=== PATIENT | male | born 1950 | race Caucasian/White ===

== ENCOUNTER 2018-08-25 08:13 | Inpatient (IN) | payer MEDICARE, OTHER ==
[2018-08-25 09:12] LABS: Hemoglobin 13.7 g/dL (14.0-18.0); Mean Corpuscular HGB CONC 32.9 g/dL (32.0-36.0); Mean Corpuscular Hemoglobin 29.9 pg (27.0-31.0); Mean Corpuscular Volume 90.8 fL (78.0-98.0); Mean Platelet Volume 6.5 fL (7.4-10.4); Platelet Count 214 thou/uL (130-400); RBC Distribution Width 11.5 % (11.5-14.5); Red Blood Cell (RBC) Count 4.58 mill/uL (4.70-6.10)
[2018-08-25 09:16] LABS: Anion Gap 16 mmol/L (10-20); BUN (Urea Nitrogen) 29 mg/dL (8.4-25.7); Calc. Creatinine Clearance 0 mL/min (70-130); Calcium 9.9 mg/dL (7.8-10.44); Carbon Dioxide 26 mmol/L (23-31); Chloride 95 mmol/L (98-107); Estimated GFR-MDRD 42; Glucose 252 mg/dL (80-115); Potassium 4.5 mmol/L (3.5-5.1); Sodium 132 mmol/L (136-145)
[2018-08-25 09:20] LABS: Eosinophils 3 % (0-10); Large Platelets SLIGHT; Lymphocytes 11 % (21-51); MDiff Complete? YES; Monocytes 5 % (0-10); Neutrophil 19 % (42-75); Platelet Morphology Comment Appears Adequate; Reactive Lymphocytes 62 % (0-10); White Blood Cell (WBC) Count 41.9 thou/uL (4.8-10.8)
[2018-08-25] MEDS ORDERED: Clindamycin/D5W 900 mg/50 ml Premix Bag ONE (10:26)
--- NOTE | 2018-08-25 10:29 | CT ---
POSTCONTRAST SOFT TISSUE NECK CT: HISTORY: Right-sided neck pain, onset yesterday. Worsening swelling x 2-3 weeks. COMPARISON: None. TECHNIQUE: Postcontrast soft tissue neck CT is performed in the axial plane. Reformatted images are submitted f or interpretation. FINDINGS: Visualized brain parenchyma and orbits are unremarkable. Adequate aeration of the visualized sinuses and mastoid air cells. Nasopharynx is unremarkable. No masses in the oral cavity. Limited evaluation due to artifact. The re is periapical lucency involving the posterior most right mandibular teeth. Correlate for periapic al abscess. There is no destruction of the associated mandible. Midline fatty raphae of the tongue is preserved. Epiglottis has a normal caliber. Preepiglottic fat is preserved. There is mild fullness of the posterior left and right oropharyngeal mucosa, nonspecific. Direct vis ualization is recommended. The supraglottic, glottic, and subglottic larynx is unremarkable. Symmetric attenuation of the sternocleidomastoid muscles, parotid glands. Fatty infiltration of both parotid glands. Thyroid gland is unremarkable. Grossly, the great vessels of the neck are patent. Cervical spine vertebral body height is maintained. There is no cervical spine fracture. There is d egenerative change with loss of disk space height and osteophyte formation, greatest at C5-C6. In the right submandibular region, there is a peripherally enhancing slightly lobulated predominantly hypodense mass measuring 3.9 x 3.8 cm. There is induration of the adjacent subcutaneous/soft tissue neck fat. An infected fluid collection versus a cystic, necrotic enlarged lymph node are different ial considerations. There are scattered nonspecific nonenlarged soft tissue neck lymph nodes noted b ilaterally. Varying degrees of central canal stenosis and neural foraminal narrowing on the basis of degenerative change. Upper mediastinum and lung apices are unremarkable. IMPRESSION: 1. Peripherally enhancing lesion in the right submandibular region which may represent an enlarged n ecrotic lymph node versus infected fluid collection. 2. Mild mucosal fullness in the posterior left and right oropharynx. POS: [facility]
[2018-08-25 10:38] LABS: INR-International Normal Ratio 1.1; PTT 32.4 SEC (22.9-36.1); Prothrombin Time 13.9 SEC (12.0-14.7)
[2018-08-25] MEDS ORDERED: Sodium Chloride 0.9% 1,000 ML IV SCH (12:45)
[2018-08-25] MEDS ORDERED: Bisacodyl 10 MG SUPP PR PRN (12:47)
[2018-08-25] MEDS ORDERED: Insulin Regular 300 UNITS/3 ML VIAL SC PRN (12:47)
[2018-08-25] MEDS ORDERED: Acetaminophen 650 MG Suppository PR PRN (12:47)
[2018-08-25] MEDS ORDERED: Ondansetron PF 4 MG/2 ML Vial IVP PRN (12:47)
[2018-08-25] MEDS ORDERED: Dextrose 5% in Water 1,000 ML IV PRN (12:47)
[2018-08-25] MEDS ORDERED: Acetaminophen 325 MG TAB PO PRN (12:47)
[2018-08-25] MEDS ORDERED: Calcium Carbonate 500 MG ChewTAB PO PRN (12:47)
[2018-08-25] MEDS ORDERED: Dextrose 50% Abboject 50 ML SYRINGE SLOW IVP PRN (12:47)
[2018-08-25] MEDS ORDERED: traMADol HCl 50 MG TAB PO PRN (13:59)
[2018-08-25] MEDS: Sodium Chloride 0.9% 1,000 ML IV SCH ×2 (14:22→21:19)
[2018-08-25 14:23] VITALS: BMI 36.3
[2018-08-25] MEDS ORDERED: cloNIDine 0.1 MG TAB PO PRN (14:23)
--- NOTE | 2018-08-25 15:00 | HP ---
PRIMARY CARE PHYSICIAN: Dr. Cherrie Larios. CHIEF COMPLAINT: Right-sided neck swelling with pain of 2 days duration. HISTORY OF PRESENT ILLNESS: The patient is a 67-year-old male with diabetes mellitus, type 2; chronic lymphocytic leukemia, stage 0; presented to the emergency room with above symptoms. Over the last 2 to 3 weeks, the patient noticed a gradual worsening of swelling of the right anterior side of the neck. This got worse over the last 2 days along with significant pain. He felt feverish, however, did not record his temperature. The pain was 10/10, radiating to his right ear. The pain was also worse on chewing. He denies any shortness of breath or swallowing difficulty. Approximately 1 or 2 months ago, he had some dental procedures done on the right. In the emergency room, initial vital signs showed temperature of 99, pulse rate of 102, blood pressure of 146/78, respirations of 18, and O2 saturations 99% on room air. Pain level of 10. A CT scan of the neck in the emergency room was consistent with 3.9 x 3.8 cm fluid collection in the right submandibular region. He received clindamycin in the emergency room. PAST MEDICAL HISTORY: 1. Diabetes mellitus, type 2. 2. Chronic lymphocytic leukemia, followed by Dr. Chowdhury. 3. Hypertension. 4. Hyperlipidemia. 5. Chronic pain syndrome. PAST SURGICAL HISTORY: 1. Gastric sleeve in 2006. 2. Dental procedures. ALLERGIES: THE PATIENT IS ALLERGIC TO CODEINE. CURRENT HOME MEDICATIONS: Family to get the accurate list of medication. He is unable to recall all of his home medications. He also takes tramadol on a daily basis for chronic pain. SOCIAL HISTORY: The patient currently lives at home with his family. He chews tobacco. He denies any alcohol or drug use. He makes his own decision with the help of his family. He is full code. FAMILY HISTORY: Positive for diabetes. REVIEW OF SYSTEMS: The patient denies any chest pain, palpitations, lightheadedness, dizziness, or focal neurologic deficit. All other review of systems were reviewed and were found negative. PHYSICAL EXAMINATION: VITAL SIGNS: As discussed above. GENERAL: A 67-year-old male, in mild distress due to neck pain. HEENT: Head, atraumatic and normocephalic. Sclerae are anicteric. Moist mucous membrane. No oral lesion. NECK: There is significant swelling over the anterior right neck. The mass was firm, fixed, with mild erythema. LUNGS: Clear to auscultation bilaterally. No wheezing, rales, or rhonchi. HEART: S1 and S2 present. Regular rate and rhythm. No murmurs, rubs, or gallops appreciated. ABDOMEN: Soft, obese. Bowel sounds present. EXTREMITIES: No edema or calf tenderness. NEUROLOGY: Grossly nonfocal. Moves all 4 extremities. PSYCHIATRIC: Alert, awake, and oriented x3. LABORATORY FINDINGS: CBC showed WBC of 41.9, with platelet count of 214, hemoglobin 13.7, 62% lymphocytes. Chemistry showed sodium 132, potassium 4.5, chloride 95, bicarb 26, BUN 29, creatinine 1.64. PT, INR, PTT are in normal range. CT of the neck by my review as discussed above. IMPRESSION: 1. Right neck cellulitis/abscess with possible sepsis. Baseline leukocyte count unavailable at this time. 2. Chronic kidney disease, stage 3. 3. Diabetes mellitus, type 2, on oral hypoglycemics. 4. Hypertension. 5. Mild hyponatremia. 6. Chronic pain syndrome. 7. Morbid obesity, status post gastric sleeve in 2006. 8. Tobacco dependence. PLAN: The patient will be monitored on the surgical floor. He will be kept n.p.o. We will continue IV fluids. Continue IV clindamycin. We will add probiotics. Blood cultures have been done. I discussed the case with Dr. Alvarado, ENT. We will start him on insulin sliding scale. We will resume other medications once confirmed. Plan of care was discussed with the patient in detail. He stated understanding. Job ID: [id number] [facility]
[2018-08-25] MEDS ORDERED: Iopamidol 370 76% 100 ML VIAL ONE (16:48)
[2018-08-25] MEDS: Morphine 4 MG/ML VIAL SLOW IVP PRN (16:53)
[2018-08-25] MEDS: Clindamycin/D5W 900 MG in Premix Bag 1 BAG IVPB SCH (18:30)
[2018-08-25] MEDS: ALPRAZolam 0.25 MG TAB PO PRN (21:14)
[2018-08-25] MEDS: Ondansetron ODT 4 MG TAB PO PRN (21:14)
[2018-08-25] MEDS: Saccharomyces boulardii 250 MG CAP PO SCH (21:14)
[2018-08-25] MEDS: Senokot S 8.6-50 MG TAB PO SCH (21:14)
[2018-08-25] MEDS: Hydrocodone-Acetamin 15 ML UDCUP PO PRN (21:15)
--- NOTE | 2018-08-25 21:16 | CON ---
DATE OF CONSULTATION: 08/25/2018 CONSULTING PHYSICIAN: Hector Wilson M.D. REASON FOR CONSULTATION: Right neck abscess. HISTORY OF PRESENT ILLNESS: Mr. Johnson is a 67-year-old male who has a history of CLL and presented couple of weeks ago with mass in his submaxillary gland bilaterally. He had had a dental extraction about 3 months ago on both sides of his mandible. About 2 days ago, he had a sudden increase in swelling of the right submaxillary gland mass with increased pain and having chills. He did not know, if he has having any fever. He is having difficulty sleeping and difficulty eating due to the pain. He was presented to the emergency room and CT scan showed 2 enlarged lymph nodes in the right submaxillary gland, appeared to be separate from the submaxillary gland itself that were loosened on the inside and enhancing. No other significant lymphadenopathy or masses were noted. Ears and sinuses were clear. He was admitted for pain control and antibiotics and possible incision and drainage. I was consulted to evaluate for drainage of the abscess. PAST MEDICAL HISTORY: Please see his admission history and physical for further details of his past medical history. REVIEW OF SYSTEMS: Reviewed on this date. ALLERGIES: OF NOTE, HE IS ALLERGIC TO CODEINE. PHYSICAL EXAMINATION: GENERAL: Obese white male in moderate distress. HEENT: Head, atraumatic and normocephalic. Eyes, pupils equal, round and reactive to light. Extraocular movements intact. Ears, tympanic membranes intact, mobile and clear. No signs of any flu infection noted. Nose, mucosa looks pink and healthy. No signs of any purulent drainage or infection or irritation noted. Oral cavity and oropharynx showed teeth in good repair. Mucosa looks pink and healthy. No evidence of any stones or purulent drainage from the submaxillary glands or the parotids. No other lesions noted. Tonsils were 1+. NECK: Shows a very large tender mass in the right submaxillary triangle area. There is mild erythema in this area. There is no palpable fluctuance noted. The mass measures about 8 cm in size. Thyroid is palpably normal. LUNGS: Clear to auscultation. HEART: Rate and rhythm regular without murmur or gallop. NEUROLOGIC: Cranial nerves III through XII were intact. ASSESSMENT: Right submaxillary lymphadenopathy with early abscess formation. RECOMMENDATIONS: At this point time, there is no fluctuance. It appears to be more of a phlegmon than an actual liquid abscess. We talked with him about trying to aspirate it. He was adamant that he would not tolerate aspiration with a needle. At this point time, it does not appear to be liquid enough and I recommended observing on IV antibiotics and we will give him a burst of Decadron and warm compresses and see how it proceeds over the next day or 2 and consideration of an incision and drainage, if it continues to worsen or becomes more fluctuant. Job ID: [id number]
[2018-08-26] MEDS: Clindamycin/D5W 900 MG in Premix Bag 1 BAG IVPB SCH ×3 (02:53→17:40)
[2018-08-26 06:00] LABS: Hemoglobin 12.7 g/dL (14.0-18.0); Mean Corpuscular HGB CONC 31.4 g/dL (32.0-36.0); Mean Corpuscular Hemoglobin 29.5 pg (27.0-31.0); Mean Corpuscular Volume 93.9 fL (78.0-98.0); Mean Platelet Volume 6.3 fL (7.4-10.4); Platelet Count 195 thou/uL (130-400); RBC Distribution Width 11.6 % (11.5-14.5); Red Blood Cell (RBC) Count 4.29 mill/uL (4.70-6.10)
[2018-08-26] MEDS: Morphine 4 MG/ML VIAL SLOW IVP PRN (06:02)
[2018-08-26 06:19] LABS: ALT (SGPT) 13 U/L (8-55); AST (SGOT) 9 U/L (5-34); Albumin 3.8 g/dL (3.4-4.8); Alkaline Phosphatase 87 U/L (40-150); Anion Gap 13 mmol/L (10-20); BUN (Urea Nitrogen) 23 mg/dL (8.4-25.7); Bilirubin, Total 0.5 mg/dL (0.2-1.2); Calc. Creatinine Clearance 84 mL/min (70-130); Calcium 9.2 mg/dL (7.8-10.44); Carbon Dioxide 26 mmol/L (23-31); Chloride 98 mmol/L (98-107); Estimated GFR-MDRD 46; Globulin 2.9 g/dL (2.4-3.5); Glucose 216 mg/dL (80-115); Potassium 4.1 mmol/L (3.5-5.1); Protein, Total 6.7 g/dL (5.8-8.1); Sodium 133 mmol/L (136-145)
[2018-08-26 06:29] LABS: Hypochromia SLIGHT = 6-15 cells (100X) (0-5/hpf); Lymphocytes 11 % (21-51); MDiff Complete? YES; Neutrophil 46 % (42-75); Platelet Morphology Comment Appears Adequate; Reactive Lymphocytes 43 % (0-10)
[2018-08-26] MEDS: Hydrocodone-Acetamin 15 ML UDCUP PO PRN ×3 (07:59→21:55)
[2018-08-26] MEDS: Senokot S 8.6-50 MG TAB PO SCH ×2 (08:00→21:55)
[2018-08-26] MEDS: Sodium Chloride 0.9% 1,000 ML IV SCH ×4 (08:04→21:56)
[2018-08-26] MEDS: Ondansetron ODT 4 MG TAB PO PRN (16:09)
[2018-08-26] MEDS: Insulin Regular 300 UNITS/3 ML VIAL SC PRN (17:40)
[2018-08-26] MEDS ORDERED: RENALLY ADJUST ANTIBIOTICS IVPB PRN (21:34)
--- NOTE | 2018-08-26 21:37 | PDOC.PN ---
- Subjective Encounter Start Date: 08/26/18 Encounter Start Time: 14:00 Patient seen and examined for neck abscess. Increasing neck swelling. No swallowing or breathing difficulty. No new complaints. No overnight events - Objective Resuscitation Status - Order Detail: 08/25/18 12:47 Resuscitation Status Routine Resuscitation Status: FULL: Full Resuscitation MAR Reviewed: Yes Vital Signs & Weight: Vital Signs (12 hours) Temp Pulse Resp BP Pulse Ox 08/26/18 15:57 98.4 F 69 18 144/83 H 95 08/26/18 11:10 98.0 F 65 18 121/78 97 Weight Weight 275 lb I&O: 08/25/18 08/26/18 08/27/18 06:59 06:59 06:59 Intake Total 960 1500 Balance 960 1500 Result Diagrams: 08/26/18 05:34 08/26/18 05:34 Additional Labs: Accuchecks 08/26/18 08/26/18 08/26/18 15:58 11:11 06:15 POC Glucose 170 H 204 H 212 H 08/25/18 21:10 POC Glucose 205 H Phys Exam - Physical Examination Constitutional: NAD Neck: no JVD Rt sided neck swelling Respiratory: no wheezing, no rhonchi Cardiovascular: RRR, no rub Gastrointestinal: soft, non-tender, positive bowel sounds Musculoskeletal: no edema Dx/Plan - Plan DVT proph w/SCDs IMPRESSION: 1. Right neck cellulitis/abscess with possible sepsis. 2. Chronic kidney disease, stage 3. 3. Diabetes mellitus, type 2, on oral hypoglycemics. 4. Hypertension. 5. Mild hyponatremia. 6. Chronic pain syndrome. 7. Morbid obesity, status post gastric sleeve in 2006. 8. Tobacco dependence. 9. CLL PLAN: Cont IV Clindamycin ENT following NPO past MN for possible intervention Pain control Cont sliding scale Resume selected home meds Review of Systems - Review of Systems Respiratory: negative: Cough, Dry, Shortness of Breath, Hemoptysis, SOB with Excertion, Pleuritic Pain, Sputum, Wheezing Cardiovascular: negative: chest pain, palpitations, orthopnea, paroxysmal nocturnal dyspnea, edema, light headedness, other - Medications/Allergies Allergies/Adverse Reactions: Allergies Allergy/AdvReac Type Severity Reaction Status Date / Time codeine Allergy Verified 08/25/18 20:51 Medications: Current Medications Acetaminophen (Tylenol) 650 mg PO Q4H PRN PRN Reason: Headache/Fever/Mild Pain (1-3) Acetaminophen (Tylenol) 650 mg HI Q4H PRN PRN Reason: Headache/Fever/Mild Pain (1-3) Hydrocodone Bitart/Acetaminophen (Hydrocodone-Apap 7.5-325/15) 30 ml PO Q6H PRN PRN Reason: .BREAKTHROUGH PAIN Last Admin: 08/26/18 13:54 Dose: 30 ml Alprazolam (Xanax) 0.25 mg PO BIDPRN PRN PRN Reason: Anxiety Last Admin: 08/25/18 21:14 Dose: 0.25 mg Bisacodyl (Dulcolax) 10 mg HI DAILYPRN PRN PRN Reason: Constipation Calcium Carbonate (Tums) 1,000 mg PO Q4H PRN PRN Reason: Heartburn or Indigestion Clonidine (Catapres) 0.1 mg PO Q4H PRN PRN Reason: Systolic BP > 180 Dextrose/Water (Dextrose 50%) 25 gm SLOW IVP PRN PRN PRN Reason: Hypoglycemia Glucagon (Glucagon) 1 mg IM PRN PRN PRN Reason: Hypoglycemia Clindamycin Phosphate/Dextrose (900 mg/ Device) 50 mls @ 100 mls/hr IVPB Q8H [facility] Last Admin: 08/26/18 17:40 Dose: 50 mls Sodium Chloride (Normal Saline 0.9%) 1,000 mls @ 100 mls/hr IV .Q10H [facility] Last Admin: 08/26/18 18:07 Dose: Not Given Dextrose/Water (D5w) 1,000 mls @ 0 mls/hr IV .Q0M PRN PRN Reason: Hypoglycemia Insulin Human Regular (Humulin R) 0 units SC .MILD SLIDING SCALE PRN PRN Reason: Mild Correctional Scale Last Admin: 08/26/18 17:40 Dose: 2 unit Insulin Human Regular (Humulin R) 0 units SC .BEDTIME SLIDING SC PRN PRN Reason: Bedtime Correctional Scale Labetalol HCl (Labetalol Hcl) 10 mg SLOW IVP Q4H PRN PRN Reason: Systolic BP > 180 Miscellaneous Medication (Pharmacy To Dose) 1 each IVPB ONE PRN PRN Reason: Pharmacy to dose Morphine Sulfate (Morphine) 2 mg SLOW IVP Q4H PRN PRN Reason: Pain Stop: 08/28/18 14:00 Last Admin: 08/26/18 06:02 Dose: 2 mg Ondansetron HCl (Zofran Odt) 4 mg PO Q6H PRN PRN Reason: Nausea/Vomiting Last Admin: 08/26/18 16:09 Dose: 4 mg Ondansetron HCl (Zofran) 4 mg IVP Q6H PRN PRN Reason: Nausea/Vomiting Saccharomyces Boulardii (Florastor) 250 mg PO HS [facility] Last Admin: 08/25/18 21:14 Dose: 250 mg Senna/Docusate Sodium (Senokot S) 1 tab PO BID [facility] Last Admin: 08/26/18 08:00 Dose: 1 tab Sodium Chloride (Flush - Normal Saline) 10 ml IVF Q12HR [facility] Last Admin: 08/26/18 08:01 Dose: 10 ml Sodium Chloride (Flush - Normal Saline) 10 ml IVF PRN PRN PRN Reason: Saline Flush Tramadol HCl (Ultram) 50 mg PO Q4H PRN PRN Reason: Moderate Pain (4-6) Last Admin: 08/25/18 18:30 Dose: 50 mg
[2018-08-26] MEDS: Saccharomyces boulardii 250 MG CAP PO SCH (21:55)
[2018-08-26] MEDS: ALPRAZolam 0.25 MG TAB PO PRN (21:55)
[2018-08-27] MEDS: Clindamycin/D5W 900 MG in Premix Bag 1 BAG IVPB SCH ×3 (02:58→17:08)
[2018-08-27] MEDS: Hydrocodone-Acetamin 15 ML UDCUP PO PRN (06:32)
[2018-08-27] MEDS: Senokot S 8.6-50 MG TAB PO SCH ×2 (08:33→20:44)
[2018-08-27] MEDS: Lisinopril 5 MG TAB PO SCH (08:33)
[2018-08-27] MEDS: Etodolac ER 400 mg Tablet PO SCH ×2 (08:33→20:45)
[2018-08-27] MEDS: Folic Acid 1 MG TAB PO SCH (08:34)
[2018-08-27] MEDS ORDERED: Clindamycin/D5W 900 MG in Premix Bag 1 BAG IVPB SCH (08:45)
[2018-08-27] MEDS ORDERED: Non-Formulary Item 1 EACH (Esomeprazole Magnesium [Nexium] 40 MG) PO SCH (09:00)
[2018-08-27] MEDS: Sodium Chloride 0.9% 1,000 ML IV SCH (10:57)
[2018-08-27] MEDS ORDERED: Fentanyl 100 MCG/2 ML VIAL ONE ×2 (12:58→14:00)
[2018-08-27] MEDS ORDERED: Midazolam HCl 2 mg/2 ml Vial ONE (12:58)
[2018-08-27] MEDS ORDERED: Bacitracin Zinc Ointment 30 gm TUBE ONE (13:03)
[2018-08-27] MEDS ORDERED: Lidocaine 1% w/Epinephrine 1:100K 20 ML VIAL ONE (13:03)
[2018-08-27] MEDS ORDERED: Lidocaine 2% Jelly 5 ML TUBE ONE (13:21)
[2018-08-27] MEDS ORDERED: PROPOFOL 200 MG/20 ML VIAL ONE (13:46)
[2018-08-27] MEDS ORDERED: Lidocaine 1% PF 5 ML VIAL ONE (13:46)
[2018-08-27] MEDS ORDERED: Dexamethasone 20 MG/5 ML VIAL ONE (13:46)
[2018-08-27] MEDS ORDERED: Succinylcholine Chloride 20 MG/ML 10 ml SYRINGE FS ONE (13:46)
[2018-08-27] MEDS ORDERED: Ondansetron PF 4 MG/2 ML Vial ONE (13:46)
[2018-08-27] MEDS ORDERED: Ondansetron HCl/PF 4 MG/2 ML Vial IVP PRN (13:58)
[2018-08-27] MEDS ORDERED: Promethazine HCl 25 MG/ML VIAL SLOW IVP PRN (13:58)
[2018-08-27] MEDS ORDERED: Promethazine HCl 25 MG/ML VIAL IM PRN (13:58)
[2018-08-27] MEDS: Insulin Regular 300 UNITS/3 ML VIAL SC PRN (15:38)
[2018-08-27] MEDS: Saccharomyces boulardii 250 MG CAP PO SCH (20:44)
[2018-08-27] MEDS: Simvastatin 20 MG TAB PO SCH (20:44)
[2018-08-27] MEDS: ALPRAZolam 0.25 MG TAB PO PRN (21:34)
--- NOTE | 2018-08-27 21:42 | PDOC.PN ---
- Subjective Encounter Start Date: 08/27/18 Encounter Start Time: 16:00 Patient seen and examined for neck abscess. s/p I&D. Pain controlled. No new complaints. No overnight events - Objective Resuscitation Status - Order Detail: 08/25/18 12:47 Resuscitation Status Routine Resuscitation Status: FULL: Full Resuscitation MAR Reviewed: Yes Vital Signs & Weight: Vital Signs (12 hours) Temp Pulse Resp BP Pulse Ox 08/27/18 20:28 98.3 F 81 12 147/87 H 94 L 08/27/18 14:28 98.4 F 78 18 140/78 95 08/27/18 12:30 98.3 F 71 17 129/78 96 08/27/18 12:05 98.3 F 68 18 121/75 97 Weight Weight 275 lb I&O: 08/26/18 08/27/18 08/28/18 06:59 06:59 06:59 Intake Total 960 1500 1050 Balance 960 1500 1050 Result Diagrams: 08/26/18 05:34 08/26/18 05:34 Additional Labs: Accuchecks 08/27/18 08/27/18 08/27/18 15:35 10:59 06:32 POC Glucose 209 H 194 H 190 H 08/26/18 22:30 POC Glucose 206 H Phys Exam - Physical Examination Constitutional: NAD Respiratory: no wheezing, no rhonchi Cardiovascular: RRR, no rub Gastrointestinal: soft, non-tender, positive bowel sounds Dx/Plan - Plan DVT proph w/SCDs IMPRESSION: 1. Right neck cellulitis/abscess with possible sepsis. 2. Chronic kidney disease, stage 3. 3. Diabetes mellitus, type 2, on oral hypoglycemics. 4. Hypertension. 5. Mild hyponatremia. 6. Chronic pain syndrome. 7. Morbid obesity, status post gastric sleeve in 2006. 8. Tobacco dependence. 9. CLL PLAN: Cont IV Clindamycin s/p I&D Resume Metformin Cont sliding scale Await cultures AM labs Microbiology 08/27/18 13:38 Mandible - Abscess Bacterial Culture - Preliminary 08/25/18 10:38 Venous blood - Left Hand Blood Culture - Preliminary NO GROWTH AT 48 HOURS 08/25/18 10:33 Venous blood - Right Arm Blood Culture - Preliminary NO GROWTH AT 48 HOURS Review of Systems - Review of Systems Respiratory: negative: Cough, Dry, Shortness of Breath, Hemoptysis, SOB with Excertion, Pleuritic Pain, Sputum, Wheezing Cardiovascular: negative: chest pain, palpitations, orthopnea, paroxysmal nocturnal dyspnea, edema, light headedness, other - Medications/Allergies Allergies/Adverse Reactions: Allergies Allergy/AdvReac Type Severity Reaction Status Date / Time codeine Allergy Verified 08/25/18 20:51 Medications: Current Medications Acetaminophen (Tylenol) 650 mg PO Q4H PRN PRN Reason: Headache/Fever/Mild Pain (1-3) Acetaminophen (Tylenol) 650 mg [place] Q4H PRN PRN Reason: Headache/Fever/Mild Pain (1-3) Hydrocodone Bitart/Acetaminophen (Hydrocodone-Apap 7.5-325/15) 30 ml PO Q6H PRN PRN Reason: .BREAKTHROUGH PAIN Last Admin: 08/27/18 06:32 Dose: 30 ml Alprazolam (Xanax) 0.25 mg PO BIDPRN PRN PRN Reason: Anxiety Last Admin: 08/27/18 21:34 Dose: 0.25 mg Bisacodyl (Dulcolax) 10 mg [place] DAILYPRN PRN PRN Reason: Constipation Calcium Carbonate (Tums) 1,000 mg PO Q4H PRN PRN Reason: Heartburn or Indigestion Calcium Carbonate (Caltrate) 600 mg PO DAILY [facility] Clonidine (Catapres) 0.1 mg PO Q4H PRN PRN Reason: Systolic BP > 180 Dextrose/Water (Dextrose 50%) 25 gm SLOW IVP PRN PRN PRN Reason: Hypoglycemia Etodolac (Lodine Er) 400 mg PO BID [facility] Last Admin: 08/27/18 20:45 Dose: 400 mg Folic Acid (Folvite) 1 mg PO DAILY [facility] Last Admin: 08/27/18 08:34 Dose: 1 mg Glucagon (Glucagon) 1 mg IM PRN PRN PRN Reason: Hypoglycemia Dextrose/Water (D5w) 1,000 mls @ 0 mls/hr IV .Q0M PRN PRN Reason: Hypoglycemia Sodium Chloride (Normal Saline 0.9%) 1,000 mls @ 0 mls/hr IV .Q0M [facility] Last Admin: 08/27/18 10:57 Dose: Not Given Clindamycin Phosphate/Dextrose (900 mg/ Device) 50 mls @ 100 mls/hr IVPB Q8H [facility] Last Admin: 08/27/18 17:08 Dose: 50 mls Insulin Human Regular (Humulin R) 0 units SC .MILD SLIDING SCALE PRN PRN Reason: Mild Correctional Scale Last Admin: 08/27/18 15:38 Dose: 3 unit Insulin Human Regular (Humulin R) 0 units SC .BEDTIME SLIDING SC PRN PRN Reason: Bedtime Correctional Scale Last Admin: 08/27/18 20:46 Dose: 4 unit Labetalol HCl (Labetalol Hcl) 10 mg SLOW IVP Q4H PRN PRN Reason: Systolic BP > 180 Lisinopril (Zestril) 5 mg PO DAILY [facility] Last Admin: 08/27/18 08:33 Dose: 5 mg Metformin HCl (Glucophage) 500 mg PO BID[facility] Miscellaneous Medication (Pharmacy To Dose) 1 each IVPB PRN PRN PRN Reason: Pharmacy to dose Morphine Sulfate (Morphine) 2 mg SLOW IVP Q4H PRN PRN Reason: Pain Stop: 08/28/18 14:00 Last Admin: 08/26/18 06:02 Dose: 2 mg Non-Formulary Medication (Hydrochlorothiazide [Hydrochlorothiazide]) 12.5 mg PO DAILY [facility] Ondansetron HCl (Zofran Odt) 4 mg PO Q6H PRN PRN Reason: Nausea/Vomiting Last Admin: 08/26/18 16:09 Dose: 4 mg Ondansetron HCl (Zofran) 4 mg IVP Q6H PRN PRN Reason: Nausea/Vomiting Pantoprazole Sodium (Protonix) 40 mg PO DAILY [facility] Last Admin: 08/27/18 08:33 Dose: 40 mg Saccharomyces Boulardii (Florastor) 250 mg PO [facility] Last Admin: 08/27/18 20:44 Dose: 250 mg Senna/Docusate Sodium (Senokot S) 1 tab PO BID [facility] Last Admin: 08/27/18 20:44 Dose: 1 tab Simvastatin (Zocor) 20 mg PO [facility] Last Admin: 08/27/18 20:44 Dose: 20 mg Sodium Chloride (Flush - Normal Saline) 10 ml IVF Q12HR [facility] Last Admin: 08/27/18 20:55 Dose: Not Given Sodium Chloride (Flush - Normal Saline) 10 ml IVF PRN PRN PRN Reason: Saline Flush Tramadol HCl (Ultram) 50 mg PO Q4H PRN PRN Reason: Moderate Pain (4-6) Last Admin: 08/25/18 18:30 Dose: 50 mg
[2018-08-28] MEDS: Clindamycin/D5W 900 MG in Premix Bag 1 BAG IVPB SCH ×3 (00:24→16:25)
[2018-08-28] MEDS: Insulin Regular 300 UNITS/3 ML VIAL SC PRN ×2 (05:40→17:26)
[2018-08-28 08:25] LABS: Hemoglobin 13.2 g/dL (14.0-18.0); Mean Corpuscular HGB CONC 32.1 g/dL (32.0-36.0); Mean Corpuscular Hemoglobin 29.8 pg (27.0-31.0); Mean Platelet Volume 6.5 fL (7.4-10.4); Platelet Count 225 thou/uL (130-400); RBC Distribution Width 11.3 % (11.5-14.5); Red Blood Cell (RBC) Count 4.44 mill/uL (4.70-6.10); White Blood Cell (WBC) Count 41.6 thou/uL (4.8-10.8)
[2018-08-28 08:32] LABS: Anion Gap 13 mmol/L (10-20); BUN (Urea Nitrogen) 23 mg/dL (8.4-25.7); Calc. Creatinine Clearance 102 mL/min (70-130); Calcium 9.6 mg/dL (7.8-10.44); Carbon Dioxide 25 mmol/L (23-31); Chloride 103 mmol/L (98-107); Estimated GFR-MDRD 57; Glucose 176 mg/dL (80-115); Potassium 4.4 mmol/L (3.5-5.1); Sodium 137 mmol/L (136-145)
[2018-08-28] MEDS: metFORMIN 500 MG TAB PO SCH ×2 (08:34→17:26)
[2018-08-28] MEDS: Calcium Carbonate 600 MG TAB PO SCH (08:34)
[2018-08-28] MEDS: Senokot S 8.6-50 MG TAB PO SCH ×2 (08:35→20:39)
[2018-08-28] MEDS: Hydrochlorothiazide 25 MG TAB PO SCH (08:35)
[2018-08-28] MEDS: Lisinopril 5 MG TAB PO SCH (08:35)
[2018-08-28] MEDS: Folic Acid 1 MG TAB PO SCH (08:36)
[2018-08-28 08:55] LABS: Lymphocytes 74 % (21-51); MDiff Complete? YES; Monocytes 3 % (0-10); Neutrophil 22 % (42-75); Platelet Morphology Comment Appears Adequate; Reactive Lymphocytes 1 % (0-10)
[2018-08-28] MEDS: Etodolac ER 400 mg Tablet PO SCH ×2 (09:49→20:41)
[2018-08-28] MEDS ORDERED: glipiZIDE 5 MG TAB PO SCH ×2 (10:30→16:30)
[2018-08-28] MEDS: Saccharomyces boulardii 250 MG CAP PO SCH (20:39)
[2018-08-28] MEDS: ALPRAZolam 0.25 MG TAB PO PRN (20:39)
[2018-08-28] MEDS: Simvastatin 20 MG TAB PO SCH (20:39)
--- NOTE | 2018-08-28 20:45 | PDOC.PN ---
- Subjective Encounter Start Date: 08/28/18 Encounter Start Time: 10:30 Patient seen and examined for neck abscess. No fever/chills. No new complaints. No overnight events - Objective Resuscitation Status - Order Detail: 08/25/18 12:47 Resuscitation Status Routine Resuscitation Status: FULL: Full Resuscitation MAR Reviewed: Yes Vital Signs & Weight: Vital Signs (12 hours) Temp Pulse Resp BP Pulse Ox 08/28/18 20:17 98.5 F 73 14 146/81 H 97 08/28/18 15:19 98.6 F 69 18 135/82 97 08/28/18 14:00 98.4 F 69 18 132/74 99 Weight Weight 275 lb I&O: 08/27/18 08/28/18 08/29/18 06:59 06:59 06:59 Intake Total 1500 2049 1300 Balance 1500 2049 1300 Result Diagrams: 08/28/18 07:55 08/28/18 07:55 Additional Labs: Accuchecks 08/28/18 08/28/18 08/28/18 15:24 11:08 05:40 POC Glucose 151 H 148 H 214 H 08/27/18 20:37 POC Glucose 305 H Microbiology 08/25/18 10:38 Venous blood - Left Hand Blood Culture - Preliminary NO GROWTH AT 48 HOURS 08/25/18 10:33 Venous blood - Right Arm Blood Culture - Preliminary NO GROWTH AT 48 HOURS Phys Exam - Physical Examination Constitutional: NAD Neck: no JVD neck dressing + Respiratory: no wheezing, no rhonchi Cardiovascular: RRR, no rub Gastrointestinal: soft, non-tender, positive bowel sounds Musculoskeletal: no edema Dx/Plan - Plan DVT proph w/SCDs IMPRESSION: 1. Right neck cellulitis/abscess with possible sepsis. s/p I&D 2. Chronic kidney disease, stage 3. 3. Diabetes mellitus, type 2, on oral hypoglycemics. 4. Hypertension. 5. Mild hyponatremia. 6. Chronic pain syndrome. 7. Morbid obesity, status post gastric sleeve in 2006. 8. Tobacco dependence. 9. CLL PLAN: Cont IV Clindamycin Resume Metformin Start Glipizide [employer] consult for DM2 Cont sliding scale Await cultures Review of Systems - Review of Systems Respiratory: negative: Cough, Dry, Shortness of Breath, Hemoptysis, SOB with Excertion, Pleuritic Pain, Sputum, Wheezing Cardiovascular: negative: chest pain, palpitations, orthopnea, paroxysmal nocturnal dyspnea, edema, light headedness, other - Medications/Allergies Allergies/Adverse Reactions: Allergies Allergy/AdvReac Type Severity Reaction Status Date / Time codeine Allergy Verified 08/25/18 20:51 Medications: Current Medications Acetaminophen (Tylenol) 650 mg PO Q4H PRN PRN Reason: Headache/Fever/Mild Pain (1-3) Acetaminophen (Tylenol) 650 mg MS Q4H PRN PRN Reason: Headache/Fever/Mild Pain (1-3) Hydrocodone Bitart/Acetaminophen (Hydrocodone-Apap 7.5-325/15) 30 ml PO Q6H PRN PRN Reason: .BREAKTHROUGH PAIN Last Admin: 08/27/18 06:32 Dose: 30 ml Alprazolam (Xanax) 0.25 mg PO BIDPRN PRN PRN Reason: Anxiety Last Admin: 08/28/18 20:39 Dose: 0.25 mg Bisacodyl (Dulcolax) 10 mg MS DAILYPRN PRN PRN Reason: Constipation Calcium Carbonate (Tums) 1,000 mg PO Q4H PRN PRN Reason: Heartburn or Indigestion Calcium Carbonate (Caltrate) 600 mg PO DAILY [facility] Last Admin: 08/28/18 08:34 Dose: 600 mg Clonidine (Catapres) 0.1 mg PO Q4H PRN PRN Reason: Systolic BP > 180 Dextrose/Water (Dextrose 50%) 25 gm SLOW IVP PRN PRN PRN Reason: Hypoglycemia Etodolac (Lodine Er) 400 mg PO BID [facility] Last Admin: 08/28/18 20:41 Dose: 400 mg Folic Acid (Folvite) 1 mg PO DAILY [facility] Last Admin: 08/28/18 08:36 Dose: 1 mg Glipizide (Glucotrol) 5 mg PO DAILY-[facility] Glucagon (Glucagon) 1 mg IM PRN PRN PRN Reason: Hypoglycemia Hydrochlorothiazide (Hydrochlorothiazide) 12.5 mg PO DAILY [facility] Last Admin: 08/28/18 08:35 Dose: 12.5 mg Dextrose/Water (D5w) 1,000 mls @ 0 mls/hr IV .Q0M PRN PRN Reason: Hypoglycemia Sodium Chloride (Normal Saline 0.9%) 1,000 mls @ 0 mls/hr IV .Q0M [facility] Last Admin: 08/27/18 10:57 Dose: Not Given Clindamycin Phosphate/Dextrose (900 mg/ Device) 50 mls @ 100 mls/hr IVPB Q8H [facility] Last Admin: 08/28/18 16:25 Dose: 50 mls Insulin Human Regular (Humulin R) 0 units SC .MILD SLIDING SCALE PRN PRN Reason: Mild Correctional Scale Last Admin: 08/28/18 17:26 Dose: 2 unit Insulin Human Regular (Humulin R) 0 units SC .BEDTIME SLIDING SC PRN PRN Reason: Bedtime Correctional Scale Last Admin: 08/27/18 20:46 Dose: 4 unit Labetalol HCl (Labetalol Hcl) 10 mg SLOW IVP Q4H PRN PRN Reason: Systolic BP > 180 Lisinopril (Zestril) 5 mg PO DAILY [facility] Last Admin: 08/28/18 08:35 Dose: 5 mg Metformin HCl (Glucophage) 500 mg PO BID-[facility] Last Admin: 08/28/18 17:26 Dose: 500 mg Miscellaneous Medication (Pharmacy To Dose) 1 each IVPB PRN PRN PRN Reason: Pharmacy to dose Morphine Sulfate (Morphine) 2 mg SLOW IVP Q4H PRN PRN Reason: Pain Stop: 08/31/18 14:00 Last Admin: 08/26/18 06:02 Dose: 2 mg Ondansetron HCl (Zofran Odt) 4 mg PO Q6H PRN PRN Reason: Nausea/Vomiting Last Admin: 08/26/18 16:09 Dose: 4 mg Ondansetron HCl (Zofran) 4 mg IVP Q6H PRN PRN Reason: Nausea/Vomiting Pantoprazole Sodium (Protonix) 40 mg PO DAILY [facility] Last Admin: 08/28/18 08:36 Dose: 40 mg Saccharomyces Boulardii (Florastor) [address] [facility] Last Admin: 08/28/18 20:39 Dose: 250 mg Senna/Docusate Sodium (Senokot S) 1 tab PO BID [facility] Last Admin: 08/28/18 20:39 Dose: 1 tab Simvastatin (Zocor) [address] [facility] Last Admin: 08/28/18 20:39 Dose: 20 mg Sodium Chloride (Flush - Normal Saline) 10 ml IVF Q12HR [facility] Last Admin: 08/28/18 09:49 Dose: 10 ml Sodium Chloride (Flush - Normal Saline) 10 ml IVF PRN PRN PRN Reason: Saline Flush Tramadol HCl (Ultram) 50 mg PO Q4H PRN PRN Reason: Moderate Pain (4-6) Last Admin: 08/25/18 18:30 Dose: 50 mg
[2018-08-29] MEDS: Clindamycin/D5W 900 MG in Premix Bag 1 BAG IVPB SCH ×3 (00:15→16:31)
[2018-08-29] MEDS: glipiZIDE 5 MG TAB PO SCH (06:32)
[2018-08-29] MEDS: metFORMIN 500 MG TAB PO SCH ×2 (08:51→16:30)
[2018-08-29] MEDS: Calcium Carbonate 600 MG TAB PO SCH (08:51)
[2018-08-29] MEDS: Folic Acid 1 MG TAB PO SCH (08:51)
[2018-08-29] MEDS: Senokot S 8.6-50 MG TAB PO SCH ×2 (08:52→20:49)
[2018-08-29] MEDS: Etodolac ER 400 mg Tablet PO SCH ×2 (08:52→20:49)
[2018-08-29] MEDS: Lisinopril 5 MG TAB PO SCH (08:52)
[2018-08-29] MEDS: Hydrochlorothiazide 25 MG TAB PO SCH (08:53)
[2018-08-29] MEDS: Cepastat Lozenges 1 LOZ PO PRN ×3 (10:52→20:51)
[2018-08-29] MEDS: Simvastatin 20 MG TAB PO SCH (20:49)
[2018-08-29] MEDS: ALPRAZolam 0.25 MG TAB PO PRN (20:49)
[2018-08-29] MEDS: Saccharomyces boulardii 250 MG CAP PO SCH (20:49)
--- NOTE | 2018-08-29 21:50 | PDOC.PN ---
- Subjective Encounter Start Date: 08/29/18 Encounter Start Time: 14:00 Patient seen and examined for mandibular abscess. Denies any discomfort over the surgical site. No new complaints. No overnight events - Objective Resuscitation Status - Order Detail: 08/25/18 12:47 Resuscitation Status Routine Resuscitation Status: FULL: Full Resuscitation MAR Reviewed: Yes Vital Signs & Weight: Vital Signs (12 hours) Temp Pulse Resp BP BP Pulse Ox 08/29/18 20:52 158/84 H 08/29/18 20:38 98.7 F 77 20 190/88 H 98 08/29/18 19:28 190/88 H 08/29/18 15:26 98.2 F 75 20 178/79 H 97 08/29/18 15:21 98.2 F 70 16 162/84 H 100 Weight Weight 275 lb I&O: 08/28/18 08/29/18 08/30/18 06:59 06:59 06:59 Intake Total 2049 1959 1499 Balance 2049 1959 1499 Result Diagrams: 08/28/18 07:55 08/28/18 07:55 Additional Labs: Accuchecks 08/29/18 08/29/18 08/29/18 20:55 15:27 11:10 POC Glucose 114 H 111 H 78 08/29/18 06:32 POC Glucose 155 H Phys Exam - Physical Examination Constitutional: NAD Neck: no JVD dressing + Gastrointestinal: no distention Musculoskeletal: no edema Neurological: non-focal, moves all 4 limbs Psychiatric: normal affect, A&O x 3 Dx/Plan - Plan DVT proph w/SCDs 1. Right neck cellulitis/abscess with possible sepsis. s/p I&D 2. Chronic kidney disease, stage 3. 3. Diabetes mellitus, type 2, on oral hypoglycemics. 4. Hypertension. 5. Mild hyponatremia. 6. Chronic pain syndrome. 7. Morbid obesity, status post gastric sleeve in 2006. 8. Tobacco dependence. 9. CLL PLAN: Cont IV Clindamycin - change to PO in AM Cont curent meds as below Cont sliding scale ENT to evaluate pt in AM - Possible dc in AM on PO Clinda 300 mg TID x [address] Alvarez Review of Systems - Review of Systems Cardiovascular: negative: chest pain, palpitations, orthopnea, paroxysmal nocturnal dyspnea, edema, light headedness, other Gastrointestinal: negative: Nausea, Vomiting, Abdominal Pain, Diarrhea, Constipation, Melena, Hematochezia, Other - Medications/Allergies Allergies/Adverse Reactions: Allergies Allergy/AdvReac Type Severity Reaction Status Date / Time codeine Allergy Verified 08/25/18 20:51 Medications: Current Medications Acetaminophen (Tylenol) 650 mg PO Q4H PRN PRN Reason: Headache/Fever/Mild Pain (1-3) Acetaminophen (Tylenol) 650 mg AR Q4H PRN PRN Reason: Headache/Fever/Mild Pain (1-3) Hydrocodone Bitart/Acetaminophen (Hydrocodone-Apap 7.5-325/15) 30 ml PO Q6H PRN PRN Reason: .BREAKTHROUGH PAIN Last Admin: 08/27/18 06:32 Dose: 30 ml Alprazolam (Xanax) 0.25 mg PO BIDPRN PRN PRN Reason: Anxiety Last Admin: 08/29/18 20:49 Dose: 0.25 mg Bisacodyl (Dulcolax) 10 mg AR DAILYPRN PRN PRN Reason: Constipation Calcium Carbonate (Tums) 1,000 mg PO Q4H PRN PRN Reason: Heartburn or Indigestion Calcium Carbonate (Caltrate) 600 mg PO DAILY [facility] Last Admin: 08/29/18 08:51 Dose: 600 mg Clonidine (Catapres) 0.1 mg PO Q4H PRN PRN Reason: Systolic BP > 180 Last Admin: 08/29/18 19:28 Dose: 0.1 mg Dextrose/Water (Dextrose 50%) 25 gm SLOW IVP PRN PRN PRN Reason: Hypoglycemia Etodolac (Lodine Er) 400 mg PO BID [facility] Last Admin: 08/29/18 20:49 Dose: 400 mg Folic Acid (Folvite) 1 mg PO DAILY [facility] Last Admin: 08/29/18 08:51 Dose: 1 mg Glipizide (Glucotrol) 5 mg PO DAILY-[facility] Last Admin: 08/29/18 06:32 Dose: 5 mg Glucagon (Glucagon) 1 mg IM PRN PRN PRN Reason: Hypoglycemia Hydrochlorothiazide (Hydrochlorothiazide) 12.5 mg PO DAILY [facility] Last Admin: 08/29/18 08:53 Dose: 12.5 mg Dextrose/Water (D5w) 1,000 mls @ 0 mls/hr IV .Q0M PRN PRN Reason: Hypoglycemia Sodium Chloride (Normal Saline 0.9%) 1,000 mls @ 0 mls/hr IV .Q0M [facility] Last Admin: 08/27/18 10:57 Dose: Not Given Clindamycin Phosphate/Dextrose (900 mg/ Device) 50 mls @ 100 mls/hr IVPB Q8H [facility] Last Admin: 08/29/18 16:31 Dose: 50 mls Insulin Human Regular (Humulin R) 0 units SC .MILD SLIDING SCALE PRN PRN Reason: Mild Correctional Scale Last Admin: 08/28/18 17:26 Dose: 2 unit Insulin Human Regular (Humulin R) 0 units SC .BEDTIME SLIDING SC PRN PRN Reason: Bedtime Correctional Scale Last Admin: 08/27/18 20:46 Dose: 4 unit Labetalol HCl (Labetalol Hcl) 10 mg SLOW IVP Q4H PRN PRN Reason: Systolic BP > 180 Lisinopril (Zestril) 5 mg PO DAILY [facility] Last Admin: 08/29/18 08:52 Dose: 5 mg [facility] Last Admin: 08/29/18 16:30 Dose: 500 mg Miscellaneous Medication (Pharmacy To Dose) 1 each IVPB PRN PRN PRN Reason: Pharmacy to dose Morphine Sulfate (Morphine) 2 mg SLOW IVP Q4H PRN PRN Reason: Pain Stop: 08/31/18 14:00 Last Admin: 08/26/18 06:02 Dose: 2 mg Ondansetron HCl (Zofran Odt) 4 mg PO Q6H PRN PRN Reason: Nausea/Vomiting Last Admin: 08/26/18 16:09 Dose: 4 mg Ondansetron HCl (Zofran) 4 mg IVP Q6H PRN PRN Reason: Nausea/Vomiting Pantoprazole Sodium (Protonix) 40 mg PO DAILY [facility] Last Admin: 08/29/18 08:51 Dose: 40 mg Saccharomyces Boulardii (Florastor) 250 mg PO [facility] Last Admin: 08/29/18 20:49 Dose: 250 mg Senna/Docusate Sodium (Senokot S) 1 tab PO BID [facility] Last Admin: 08/29/18 20:49 Dose: 1 tab Simvastatin (Zocor) 20 mg PO HS [facility] Last Admin: 08/29/18 20:49 Dose: 20 mg Sodium Chloride (Flush - Normal Saline) 10 ml IVF Q12HR [facility] Last Admin: 08/29/18 21:21 Dose: 10 ml Sodium Chloride (Flush - Normal Saline) 10 ml IVF PRN PRN PRN Reason: Saline Flush Last Admin: 08/29/18 16:31 Dose: 10 ml Throat Lozenges (Cepastat Lozenges) 1 deepti PO Q2H PRN PRN Reason: Sore Throat Last Admin: 08/29/18 20:51 Dose: 1 deepti Tramadol HCl (Ultram) 50 mg PO Q4H PRN PRN Reason: Moderate Pain (4-6) Last Admin: 08/25/18 18:30 Dose: 50 mg
[2018-08-30] MEDS: Clindamycin/D5W 900 MG in Premix Bag 1 BAG IVPB SCH ×2 (00:02→09:08)
[2018-08-30] MEDS: glipiZIDE 5 MG TAB PO SCH (06:41)
--- NOTE | 2018-08-30 09:02 | OP ---
DATE OF PROCEDURE: 08/27/2018 PREOPERATIVE DIAGNOSIS: Large right neck abscess. POSTOPERATIVE DIAGNOSIS: Large right submandibular neck abscess. PROCEDURE PERFORMED: 1. Direct laryngoscopy. 2. Incision and drainage of large right neck abscess. DESCRIPTION OF PROCEDURE: After consent was obtained, the patient was identified, brought to the operating room, and placed on the operating room table in the supine position. General endotracheal anesthesia was obtained. The patient was positioned for surgery. The patient underwent systematic laryngeal evaluation and there were no abnormalities identified in his oral cavity, oropharynx, or larynx. Dentition was in good condition. No obvious caries. We then prepped and draped the neck and infiltrated the intended line of incision with 1% lidocaine with 1:100,000 epinephrine. An incision was made through the skin, subcutaneous tissues, and the tissues were quite edematous, and we ultimately made the incision through the platysma muscle and blunt dissected towards the lesion. A large amount of foul-smelling copious purulence was encountered and the wound was spread. After the wound was copiously irrigated and cultures were obtained, we proceeded with placing a Elisabet drain followed by a suture, secured that to the skin and then placed a sterile dressing. Awakened the patient and taken to recovery room in stable condition prior to discharge to home. Job ID: [id number]
[2018-08-30] MEDS: Etodolac ER 400 mg Tablet PO SCH (09:04)
[2018-08-30] MEDS: Calcium Carbonate 600 MG TAB PO SCH (09:05)
[2018-08-30] MEDS: Folic Acid 1 MG TAB PO SCH (09:06)
[2018-08-30] MEDS: Hydrochlorothiazide 25 MG TAB PO SCH (09:06)
[2018-08-30] MEDS: Lisinopril 5 MG TAB PO SCH (09:07)
[2018-08-30] MEDS: metFORMIN 500 MG TAB PO SCH (09:07)
[2018-08-30] MEDS: Senokot S 8.6-50 MG TAB PO SCH (09:08)
[2018-08-30 11:10] VITALS: BP 165/79; TEMP 98.1
--- NOTE | 2018-08-30 15:38 | PRG ---
DATE OF SERVICE: 08/30/2018 SUBJECTIVE: Mr. Johnson was seen by Dr. Alvarez on Monday, August 27 in the emergency room for a right-sided neck abscess. He was taken to the OR, where the abscess was explored and drained and the drain was placed that he has been in-hospital since that time. He reports that he is better. It has been requested that drain be removed so that the patient may be discharged. OBJECTIVE: GENERAL: Mr. Johnson is well developed, well nourished. He is in no acute distress. VITAL SIGNS: Have been stable. NECK: Right-sided drain is still in place, held with sutures. The drain was removed today without any complications and then covered with a clean dressing. ASSESSMENT: Postop right-sided neck abscess. PLAN: Okay to be discharged per ENT. Drained removed successfully. He will be sent home with antibiotics per hospitalist and we will follow with ears, nose, and throat in next well Monday or Monday. Job ID: [id number]
--- NOTE | 2018-08-31 11:46 | DIS ---
DATE OF ADMISSION: 08/25/2018 DATE OF DISCHARGE: 08/30/2018 DISCHARGE DISPOSITION: Home. DISCHARGE FOLLOWUP: 1. Follow up with primary care physician, Cherrie Larios in 1 week. 2. Follow up with Dr. Clifton Alvarez on next Monday. ALLERGIES: CODEINE. THE PATIENT WAS SEEN ON THE DAY OF DISCHARGE. DENIES ANY NEW COMPLAINTS. NO CHEST PAIN, SHORTNESS OF BREATH, PALPITATIONS, FEVER, OR CHILLS REPORTED. DISCHARGE MEDICATIONS: 1. Clindamycin 300 mg three times daily for next 10 days per ENT. 2. Florastor 250 mg daily. All other home medications were left unchanged. BRIEF HOSPITAL COURSE: The patient is a 67-year-old male with diabetes mellitus type 2, presented to the emergency room with right-sided neck swelling of 2 days duration. Please refer to the history and physical for further details. The patient was admitted to the hospital with a diagnosis of mandibular abscess that was confirmed on the CT scan. He was evaluated by ENT. He was started on IV clindamycin. Due to lack of improvement after 48 hours, he underwent direct laryngoscopy with incision and drainage of the large right neck abscess. His blood culture remained negative. Culture from the mandibular abscess showed normal oral mignon. Anaerobic cultures are pending. Primary care physician advised to follow. He was evaluated by ENT this morning and has been cleared for discharge. FINAL DIAGNOSES: 1. Right-sided mandibular abscess, status post I and D. 2. Chronic kidney disease, stage 3. 3. Diabetes mellitus, type 2. 4. Hypertension. 5. Mild hyponatremia. 6. Chronic pain syndrome. 7. History of morbid obesity, status post gastric sleeve in 2006. 8. Tobacco dependence. 9. CLL. 10. Obesity with a BMI 36. 11. Hyponatremia. 12. Mild chronic anemia. PLAN: Plan was discussed with the patient in detail. He stated understanding. Job ID: [id number]
== END 2018-08-30 11:20 | disposition home or self-care (01) | DRG 580 ==
LOC: ERS 08:13 → OBSVTOIN 10:33 → SURG A 10:33
PROVIDERS: ADMIT Internal Medicine; ATTEND Internal Medicine
PROC: 0W9600Z Drainage of Neck with Drainage Device, Open Approach (ICD-10-PCS; principal; 2018-08-27)
DX: L02.11 Cutaneous abscess of neck (principal); C91.10 Chronic lymphocytic leukemia of B-cell type not having achieved remission; E87.1 Hypo-osmolality and hyponatremia; R59.1 Generalized enlarged lymph nodes; N18.3 Chronic kidney disease, stage 3 (moderate); I12.9 Hypertensive chronic kidney disease with stage 1 through stage 4 chronic kidney disease, or unspecified chronic kidney disease; E11.22 Type 2 diabetes mellitus with diabetic chronic kidney disease; Z79.84 Long term (current) use of oral hypoglycemic drugs; Z68.36 Body mass index [BMI] 36.0-36.9, adult; Z98.84 Bariatric surgery status; D63.8 Anemia in other chronic diseases classified elsewhere; E78.5 Hyperlipidemia, unspecified; Z88.5 Allergy status to narcotic agent; F17.220 Nicotine dependence, chewing tobacco, uncomplicated; G89.29 Other chronic pain; E66.01 Morbid (severe) obesity due to excess calories
CPT/HCPCS: 36415; 36416; 70491; 80048; 80053; 85025; 85060; 85610; 85730; 87040; 87070; 87076; 87205; 96360; J1100; J1815; J2001; J2250; J2270; J2405; J2704; J3010; J3490; Q0162; Q9967

== ENCOUNTER 2019-02-18 15:44 | Emergency (ER) | payer MEDICARE, OTHER ==
[~2019-02-18 15:44] MED LIST: ISOVUE-370 76%-LOCM 1 ML ONE
--- NOTE | 2019-02-18 16:20 | RAD ---
Exam: Chest one view HISTORY:Chest pain Comparison: 04/05/2015 FINDINGS: Lungs: No masses or consolidation. Cardiac silhouette: Normal size Pulmonary vessels: Normal Pleural Spaces: Clear Pneumothorax: None Osseous abnormalities: None of acuity. IMPRESSION: No focal consolidation.
[2019-02-18 16:25] LABS: Hemoglobin 15.2 g/dL (14.0-18.0); Mean Corpuscular HGB CONC 34.3 g/dL (32.0-36.0); Mean Corpuscular Hemoglobin 31.1 pg (27.0-31.0); Mean Corpuscular Volume 90.5 fL (78.0-98.0); Platelet Count 142 thou/uL (130-400); RBC Distribution Width 12.2 % (11.5-14.5); White Blood Cell (WBC) Count 80.2 thou/uL (4.8-10.8)
[2019-02-18 16:35] LABS: ALT (SGPT) 30 U/L (8-55); AST (SGOT) 24 U/L (5-34); Albumin 4.5 g/dL (3.4-4.8); Alkaline Phosphatase 92 U/L (40-150); Anion Gap 17 mmol/L (10-20); BUN (Urea Nitrogen) 40 mg/dL (8.4-25.7); Bilirubin, Total 0.6 mg/dL (0.2-1.2); CK (CPK) 57 U/L (30-200); Calc. Creatinine Clearance 0 mL/min (70-130); Calcium 10.1 mg/dL (7.8-10.44); Carbon Dioxide 26 mmol/L (23-31); Chloride 99 mmol/L (98-107); Estimated GFR-MDRD 36; Globulin 2.8 g/dL (2.4-3.5); Glucose 123 mg/dL (80-115); Lipase 21 U/L (8-78); Potassium 4.9 mmol/L (3.5-5.1); Protein, Total 7.3 g/dL (5.8-8.1); Sodium 137 mmol/L (136-145)
[2019-02-18 17:07] LABS: Band 1 % (5-11); Lymphocytes 70 % (21-51); MDiff Complete? YES; Monocytes 3 % (0-10); Neutrophil 11 % (42-75); Platelet Morphology Comment Appears Adequate; Polychromasia SLIGHT = 2-3 cells (100X) (0-2/hpf); Reactive Lymphocytes 15 % (0-10); Reflex for Review?? NO; Tear Drops SLIGHT = 2-5 cells (100X) (0-1/hpf)
--- NOTE | 2019-02-18 18:01 | CT ---
CT OF THE CHEST, ABDOMEN AND PELVIS WITH IV CONTRAST INDICATION: Night sweats, abdominal pain, chest pressure and shortness of breath COMPARISON: None. FINDINGS: CHEST: Lungs:Clear. Heart and great vessels:There are coronary artery and thoracic aortic calcifications. Pleural space: No pneumothorax or effusion. Additional findings: ABDOMEN: Liver:Mild fatty liver Spleen:Enlarged measuring 16.5 cm Pancreas:Normal appearing. Adrenal Glands:Normal appearing. Kidneys:There is a 3.2 cm inferior left peripelvic cyst. Aorta:Normal appearing. Additional findings: There is a small gallstone within the gallbladder Pelvis: Bowel:There are scattered colonic diverticulosis without evidence of active diverticulitis. There is a normal appendix in the right lower quadrant of the abdomen. Bladder:Normal appearing. Reproductive structures:Normal appearing. Rectum and perirectal soft tissues:Normal appearing. Additional findings: There is a fat-containing right inguinal hernia Osseous structures: No acute osseous abnormality. There is scattered degenerative and osteoarthritic changes. IMPRESSION: 1. Nonspecific mild splenomegaly. 2. Fatty liver 3. Cholelithiasis 4. Postsurgical change from prior gastroplasty #5 left renal peripelvic cyst 6. Colonic diverticulosis
[2019-02-18 19:09] LABS: Troponin I Less than 0.010 ng/mL (< 0.028)
== END 2019-02-18 19:28 | disposition home or self-care (01) ==
LOC: ERS 15:44
DX: R10.9 Unspecified abdominal pain (principal); D72.829 Elevated white blood cell count, unspecified; I10 Essential (primary) hypertension; E11.9 Type 2 diabetes mellitus without complications; E78.5 Hyperlipidemia, unspecified; F17.220 Nicotine dependence, chewing tobacco, uncomplicated; F41.0 Panic disorder [episodic paroxysmal anxiety]; Z79.899 Other long term (current) drug therapy; Z79.84 Long term (current) use of oral hypoglycemic drugs
CPT/HCPCS: 36415; 71045; 71260; 74177; 80053; 82550; 83690; 84484; 85025; 93005; Q9966

== ENCOUNTER 2019-10-10 07:39 | Emergency (ER) | payer MEDICARE, OTHER ==
[2019-10-10 08:23] LABS: Hemoglobin 14.9 g/dL (14.0-18.0); Mean Corpuscular HGB CONC 33.7 g/dL (32.0-36.0); Mean Corpuscular Hemoglobin 30.9 pg (27.0-31.0); Mean Corpuscular Volume 91.7 fL (78.0-98.0); Mean Platelet Volume 6.8 fL (7.4-10.4); Platelet Count 156 thou/uL (130-400); RBC Distribution Width 12.3 % (11.5-14.5); Red Blood Cell (RBC) Count 4.83 mill/uL (4.70-6.10); Reflex for Review?? NO
[2019-10-10 08:36] LABS: ALT (SGPT) 31 U/L (8-55); AST (SGOT) 20 U/L (5-34); Albumin 4.5 g/dL (3.4-4.8); Alkaline Phosphatase 98 U/L (40-110); Anion Gap 16 mmol/L (10-20); BUN (Urea Nitrogen) 28 mg/dL (8.4-25.7); Bilirubin, Total 0.5 mg/dL (0.2-1.2); Calc. Creatinine Clearance 0 mL/min (70-130); Calcium 10.3 mg/dL (7.8-10.44); Carbon Dioxide 28 mmol/L (23-31); Chloride 96 mmol/L (98-107); Estimated GFR-MDRD 38; Globulin 2.8 g/dL (2.4-3.5); Glucose 171 mg/dL (80-115); Protein, Total 7.3 g/dL (5.8-8.1); Sodium 135 mmol/L (136-145)
[2019-10-10 08:46] LABS: Eosinophils 1 % (0-10); Lymphocytes 84 % (21-51); MDiff Complete? YES; Monocytes 1 % (0-10); Neutrophil 14 % (42-75); Platelet Morphology Comment Appears Adequate; RBC Morphology Normal
[2019-10-10 08:48] LABS: Bilirubin Negative (Negative); Blood, Urine Negative (Negative); Clarity Clear (Clear); Glucose, Urine (Dipstick) Normal (Negative); Leukocyte Negative Leu/uL (Negative); Nitrite Negative (Negative); Protein, Urine (Dipstick) Negative (Neg-Trace); Urobilinogen Normal mg/dL (Less than 2)
--- NOTE | 2019-10-11 13:07 | EKG ---
Test Reason : Blood Pressure : / mmHG Vent. Rate : 071 BPM Atrial Rate : 071 BPM P-R Int : 138 ms QRS Dur : 080 ms QT Int : 374 ms P-R-T Axes : 046 -15 010 degrees QTc Int : 406 ms Normal sinus rhythm Inferior infarct , age undetermined Abnormal ECG Confirmed by JOSSIE GANNON DO ([id number]), web editor KIMBERLY ORDOÑEZ ([id number] on 10/11/2019 1:06:32 PM Referred By: Confirmed By:JOSSIE GANNON DO
== END 2019-10-10 09:59 | disposition home or self-care (01) ==
LOC: ERS 07:39
DX: F43.9 Reaction to severe stress, unspecified (principal); E11.65 Type 2 diabetes mellitus with hyperglycemia; I10 Essential (primary) hypertension; E78.5 Hyperlipidemia, unspecified; F17.220 Nicotine dependence, chewing tobacco, uncomplicated
CPT/HCPCS: 36415; 36416; 80053; 81003; 85025; 93005

== ENCOUNTER 2020-11-23 10:01 | Inpatient (IN) | payer MEDICARE, OTHER ==
[2020-11-23 11:39] LABS: Reflex for Review?? YES
[2020-11-23 11:42] LABS: ALT (SGPT) 31 U/L (8-55); AST (SGOT) 27 U/L (5-34); Alkaline Phosphatase 94 U/L (40-110); Anion Gap 17 mmol/L (10-20); BUN (Urea Nitrogen) 23 mg/dL (8.4-25.7); Bilirubin, Total 0.6 mg/dL (0.2-1.2); Calc. Creatinine Clearance 0 mL/min (70-130); Carbon Dioxide 25 mmol/L (23-31); Chloride 97 mmol/L (98-107); Glucose 134 mg/dL (80-115); Sodium 135 mmol/L (136-145)
[2020-11-23 11:57] LABS: Band 1 % (5-11); Lymphocytes 89 % (21-51); MDiff Complete? YES; Monocytes 1 % (0-10); Neutrophil 8 % (42-75); Platelet Morphology Comment Appears Decreased; Polychromasia SLIGHT = 2-3 cells (100X) (0-2/hpf); Reactive Lymphocytes 1 % (0-10)
[2020-11-23 12:04] LABS: Hemoglobin 12.7 g/dL (14.0-18.0); Mean Corpuscular HGB CONC 33.8 g/dL (32.0-36.0); Mean Corpuscular Hemoglobin 31.1 pg (27.0-31.0); Mean Platelet Volume 6.9 fL (7.4-10.4); Platelet Count 116 thou/uL (130-400); RBC Distribution Width 12.1 % (11.5-14.5); Red Blood Cell (RBC) Count 4.09 mill/uL (4.70-6.10); White Blood Cell (WBC) Count 57.8 thou/uL (4.8-10.8)
[2020-11-23] MEDS ORDERED: cefTRIAXone\\ROCEPHIN 2 GM VIAL ONE (12:18)
[2020-11-23] MEDS ORDERED: Azithromycin 500 MG VIAL ONE (12:18)
[2020-11-23 12:43] LABS: SARS-CoV-2 NAA Rapid Test DETECTED (NotDetected)
[2020-11-23] MEDS ORDERED: HumaLOG 300 UNITS/3 ML VIAL SC PRN (14:09)
[2020-11-23] MEDS ORDERED: Dextrose 50% Abboject 50 ML SYRINGE SLOW IVP PRN (14:09)
[2020-11-23] MEDS ORDERED: Dextrose 5% in Water 1,000 ML IV PRN (14:09)
[2020-11-23] MEDS ORDERED: hydrALAZINE 20 MG/ML VIAL SLOW IVP PRN (14:12)
[2020-11-23] MEDS ORDERED: Dexamethasone 10 MG in Sodium Chloride 0.9% 50 ML IVPB SCH (14:15)
[2020-11-23 16:18] VITALS: BMI 36.2
[2020-11-23] MEDS ORDERED: Atorvastatin Calcium 10 MG TAB PO SCH (21:00)
[2020-11-23] MEDS ORDERED: Folic Acid 1 MG TAB PO SCH (21:00)
[2020-11-23] MEDS ORDERED: Melatonin 3 MG TAB PO SCH ×2 (21:00→21:15)
[2020-11-23] MEDS ORDERED: Calcium Polycarbophil 625 MG TAB PO SCH (21:00)
[2020-11-24 06:55] LABS: Anion Gap 13 mmol/L (10-20); BUN (Urea Nitrogen) 21 mg/dL (8.4-25.7); CRP (Inflammatory) 6.47 mg/dL (= or < 0.5); Calc. Creatinine Clearance 106 mL/min (70-130); Calcium 9.1 mg/dL (7.8-10.44); Carbon Dioxide 26 mmol/L (23-31); Chloride 100 mmol/L (98-107); Glucose 164 mg/dL (80-115); Potassium 4.1 mmol/L (3.5-5.1); Sodium 135 mmol/L (136-145)
[2020-11-24 08:10] LABS: Hemoglobin 12.7 g/dL (14.0-18.0); Mean Corpuscular Hemoglobin 31.3 pg (27.0-31.0); Mean Corpuscular Volume 91.9 fL (78.0-98.0); Platelet Count 129 thou/uL (130-400); RBC Distribution Width 12.1 % (11.5-14.5); Red Blood Cell (RBC) Count 4.08 mill/uL (4.70-6.10); White Blood Cell (WBC) Count 61.5 thou/uL (4.8-10.8)
[2020-11-24 08:12] LABS: Band 1 % (5-11); Lymphocytes 86 % (21-51); MDiff Complete? YES; Monocytes 4 % (0-10); Neutrophil 7 % (42-75); Platelet Morphology Comment Appears Decreased; Polychromasia SLIGHT = 2-3 cells (100X) (0-2/hpf); Reactive Lymphocytes 2 % (0-10)
[2020-11-24 08:33] VITALS: BP 158/74; TEMP 97.7
[2020-11-24] MEDS ORDERED: Dexamethasone 6 MG in Sodium Chloride 0.9% 50 ML IVPB SCH (09:00)
[2020-11-24] MEDS ORDERED: Ferrous Sulfate 325 MG TAB PO SCH (09:00)
[2020-11-24] MEDS ORDERED: FLUoxetine HCl 20 MG CAP PO SCH (09:00)
[2020-11-24] MEDS ORDERED: Enoxaparin Sodium 40 MG/0.4 ML SYRINGE SC SCH (09:00)
[2020-11-24] MEDS ORDERED: Lisinopril 20 MG TAB PO SCH (09:00)
[2020-11-24] MEDS ORDERED: cefTRIAXone\\ROCEPHIN 1 GM in Sodium Chloride 0.9% 100 ML IVPB SCH (12:00)
[2020-11-24] MEDS ORDERED: Azithromycin 250 MG TAB PO SCH (12:00)
[2020-11-24] MEDS ORDERED: Melatonin 3 MG TAB PO SCH (21:00)
== END 2020-11-24 12:15 | disposition home or self-care (01) | DRG 177 ==
LOC: ERS 10:01 → T4-A 14:00
PROVIDERS: ADMIT Internal Medicine; ATTEND Internal Medicine
DX: U07.1 COVID-19 (principal); J18.9 Pneumonia, unspecified organism; C91.10 Chronic lymphocytic leukemia of B-cell type not having achieved remission; Z20.822 Contact with and (suspected) exposure to COVID-19; G89.4 Chronic pain syndrome; I10 Essential (primary) hypertension; E78.00 Pure hypercholesterolemia, unspecified; E11.69 Type 2 diabetes mellitus with other specified complication; E66.01 Morbid (severe) obesity due to excess calories; Z68.36 Body mass index [BMI] 36.0-36.9, adult; Z98.84 Bariatric surgery status; Z79.84 Long term (current) use of oral hypoglycemic drugs; Z88.5 Allergy status to narcotic agent; Z87.891 Personal history of nicotine dependence
CPT/HCPCS: 0240U; 36415; 36416; 71045; 80048; 80053; 82728; 83615; 85025; 85060; 86140; 87040; 88184; 93005; J0360; J0456; J0696; J1100; J1650; J1815

== ENCOUNTER 2021-08-08 21:38 | Observation (INO) | payer MEDICARE ==
[~2021-08-08 21:38] MED LIST changes: -ISOVUE-370 76%-LOCM 1 ML ONE; +Iopamidol 370 76% 100 ML VIAL ONE
[2021-08-08] MEDS ORDERED: Ondansetron PF 4 MG/2 ML Vial ONE (21:42)
[2021-08-08] MEDS ORDERED: Mag-Al 1200 mg/1200 mg/30 ML UDCUP ONE (22:02)
[2021-08-08] MEDS ORDERED: Lidocaine Viscous Sol 2% 15 ml UD Cup ONE (22:02)
[2021-08-08] MEDS ORDERED: Morphine 4 MG/ML VIAL ONE (22:10)
[2021-08-08 22:50] LABS: Hemoglobin 12.9 g/dL (14.0-18.0); Mean Corpuscular HGB CONC 33.1 g/dL (32.0-36.0); Mean Corpuscular Hemoglobin 30.9 pg (27.0-31.0); Mean Corpuscular Volume 93.2 fL (78.0-98.0); Mean Platelet Volume 6.7 fL (7.4-10.4); Platelet Count 120 thou/uL (130-400); RBC Distribution Width 12.2 % (11.5-14.5); Red Blood Cell (RBC) Count 4.17 mill/uL (4.70-6.10); White Blood Cell (WBC) Count 73.4 thou/uL (4.8-10.8)
[2021-08-08 23:06] LABS: ALT (SGPT) 47 U/L (8-55); AST (SGOT) 27 U/L (5-34); Albumin 4.3 g/dL (3.4-4.8); Alkaline Phosphatase 101 U/L (40-110); Anion Gap 19 mmol/L (10-20); BUN (Urea Nitrogen) 30 mg/dL (8.4-25.7); Bilirubin, Total 0.7 mg/dL (0.2-1.2); Calc. Creatinine Clearance 0 mL/min (70-130); Calcium 9.8 mg/dL (7.8-10.44); Carbon Dioxide 25 mmol/L (23-31); Chloride 97 mmol/L (98-107); Globulin 3.1 g/dL (2.4-3.5); Glucose 294 mg/dL (80-115); Lipase 16 U/L (8-78); Potassium 4.5 mmol/L (3.5-5.1); Protein, Total 7.4 g/dL (5.8-8.1); Sodium 136 mmol/L (136-145)
[2021-08-08 23:11] LABS: Band 2 % (5-11); Differential Comment Immature Cell(s); Hypochromia SLIGHT = 6-15 cells (100X) (0-5/hpf); Lymphocytes 23 % (21-51); MDiff Complete? YES; Monocytes 11 % (0-10); Neutrophil 17 % (42-75); Platelet Morphology Comment Appears Decreased; Reactive Lymphocytes 17 % (0-10); Reflex for Review?? YES
[2021-08-09] MEDS ORDERED: Acetaminophen 500 MG TAB ONE (00:23)
[2021-08-09] MEDS ORDERED: Morphine 4 MG/ML VIAL ONE (00:45)
[2021-08-09] MEDS ORDERED: Dicyclomine 20 MG TAB ONE (00:45)
[2021-08-09 01:14] LABS: Bacteria/HPF None Seen HPF (None Seen); Bilirubin Negative (Negative); Blood, Urine Negative (Negative); Clarity Clear (Clear); Glucose, Urine (Dipstick) Greater than 1000 mg/dL (Negative); Ketone, Urine 40 mg/dL (Negative); Leukocyte Negative Leu/uL (Negative); Nitrite Negative (Negative); Protein, Urine (Dipstick) 30 mg/dL (Neg-Trace); RBC/HPF 0-3 HPF (0-3); Squamous Epithelial 0-3 HPF (0-3); WBC/HPF 0-3 HPF (0-3); pH, Urine 6.5 (5.0-9.0)
[2021-08-09 01:15] LABS: Specific Gravity, Urine 1.049 (1.002-1.036)
[2021-08-09] MEDS ORDERED: Piperacillin/Tazobactam 3.375 GM VIAL ONE (01:23)
[2021-08-09] MEDS ORDERED: Acetaminophen 325 MG TAB PO PRN (02:45)
[2021-08-09] MEDS ORDERED: Sodium Chloride 0.9% 1,000 ML IV SCH (02:45)
[2021-08-09] MEDS ORDERED: Ondansetron ODT 4 MG TAB SL PRN (02:45)
[2021-08-09] MEDS ORDERED: Ondansetron PF 4 MG/2 ML Vial IVP PRN (02:45)
[2021-08-09 03:06] VITALS: BMI 33.1
[2021-08-09 03:26] LABS: SARS-CoV-2 NAA Rapid Test Not Detected (NotDetected)
[2021-08-09] MEDS ORDERED: Dextrose 5% in Water 1,000 ML IV PRN (03:31)
[2021-08-09] MEDS ORDERED: Dextrose 50% Abboject 50 ML SYRINGE SLOW IVP PRN (03:31)
[2021-08-09] MEDS ORDERED: HumaLOG 300 UNITS/3 ML VIAL SC PRN (03:31)
[2021-08-09] MEDS: Morphine 4 MG/ML VIAL SLOW IVP PRN ×5 (05:16→21:25)
[2021-08-09 05:57] LABS: Lactic Acid 3.2 mmol/L (0.5-2.2)
[2021-08-09] MEDS ORDERED: Lantus 1000 UNITS/10 ML VIAL SC SCH (12:15)
[2021-08-09] MEDS: HumaLOG 300 UNITS/3 ML VIAL SC PRN ×2 (12:38→17:18)
[2021-08-09] MEDS: Sodium Chloride 0.9% 1,000 ML IV SCH (12:44)
[2021-08-09] MEDS ORDERED: Ferrous Sulfate 325 MG TAB PO SCH (17:00)
[2021-08-09] MEDS ORDERED: Folic Acid 1 MG TAB PO SCH (21:00)
[2021-08-09] MEDS ORDERED: Melatonin 3 MG TAB PO SCH (21:00)
[2021-08-09] MEDS ORDERED: Atorvastatin Calcium 10 MG TAB PO SCH (21:00)
[2021-08-10] MEDS: Sodium Chloride 0.9% 1,000 ML IV SCH ×2 (00:01→13:08)
[2021-08-10] MEDS: Morphine 4 MG/ML VIAL SLOW IVP PRN ×3 (02:18→15:56)
[2021-08-10] MEDS: HumaLOG 300 UNITS/3 ML VIAL SC PRN ×2 (05:23→11:38)
[2021-08-10 06:34] LABS: Hemoglobin 12.9 g/dL (14.0-18.0); Mean Corpuscular HGB CONC 32.9 g/dL (32.0-36.0); Mean Corpuscular Hemoglobin 31.5 pg (27.0-31.0); Mean Corpuscular Volume 95.8 fL (78.0-98.0); Mean Platelet Volume 6.7 fL (7.4-10.4); Platelet Count 110 thou/uL (130-400); RBC Distribution Width 12.1 % (11.5-14.5); Red Blood Cell (RBC) Count 4.09 mill/uL (4.70-6.10); White Blood Cell (WBC) Count 70.4 thou/uL (4.8-10.8)
[2021-08-10 06:49] LABS: Anion Gap 15 mmol/L (10-20); BUN (Urea Nitrogen) 28 mg/dL (8.4-25.7); Calc. Creatinine Clearance 64 mL/min (70-130); Calcium 8.8 mg/dL (7.8-10.44); Carbon Dioxide 25 mmol/L (23-31); Chloride 96 mmol/L (98-107); Glucose 232 mg/dL (80-115); Potassium 4.3 mmol/L (3.5-5.1); Sodium 132 mmol/L (136-145)
[2021-08-10 08:10] LABS: Band 2 % (5-11); Lymphocytes 80 % (21-51); MDiff Complete? YES; Neutrophil 18 % (42-75); Platelet Morphology Comment Appears Decreased; Polychromasia SLIGHT = 2-3 cells (100X) (0-2/hpf)
[2021-08-10] MEDS ORDERED: Lisinopril 20 MG TAB PO SCH (09:00)
[2021-08-10] MEDS ORDERED: FLUoxetine HCl 20 MG CAP PO SCH (09:00)
[2021-08-10] MEDS ORDERED: Hydrochlorothiazide 25 MG TAB PO SCH (09:00)
[2021-08-10] MEDS ORDERED: Lantus 1000 UNITS/10 ML VIAL SC SCH (09:00)
[2021-08-10] MEDS ORDERED: Enoxaparin Sodium 40 MG/0.4 ML SYRINGE SC SCH (09:00)
[2021-08-10] MEDS ORDERED: hydrOXYzine 25 MG TAB PO SCH (09:00)
[2021-08-10 11:53] VITALS: BP 104/60; TEMP 98.2
[2021-08-12] MEDS ORDERED: FLU VACC QS2021-22(65YR UP)/PF 240 MCG/0.7 ML SYRINGE IM ONE (09:00)
== END 2021-08-10 16:49 | disposition home or self-care (01) ==
LOC: ERS 21:38 → T4-A 08-09 01:31
PROVIDERS: ADMIT Internal Medicine; ATTEND Internal Medicine
DX: R10.12 Left upper quadrant pain (principal); R10.13 Epigastric pain; R11.2 Nausea with vomiting, unspecified; E11.10 Type 2 diabetes mellitus with ketoacidosis without coma; I12.9 Hypertensive chronic kidney disease with stage 1 through stage 4 chronic kidney disease, or unspecified chronic kidney disease; E11.22 Type 2 diabetes mellitus with diabetic chronic kidney disease; N18.30 Chronic kidney disease, stage 3 unspecified; E87.1 Hypo-osmolality and hyponatremia; C91.10 Chronic lymphocytic leukemia of B-cell type not having achieved remission; E78.5 Hyperlipidemia, unspecified; R16.1 Splenomegaly, not elsewhere classified; K57.30 Diverticulosis of large intestine without perforation or abscess without bleeding; M51.36 Other intervertebral disc degeneration, lumbar region; F12.10 Cannabis abuse, uncomplicated; F17.220 Nicotine dependence, chewing tobacco, uncomplicated; E78.00 Pure hypercholesterolemia, unspecified; M19.90 Unspecified osteoarthritis, unspecified site; E66.9 Obesity, unspecified; Z68.33 Body mass index [BMI] 33.0-33.9, adult; Z86.16 Personal history of COVID-19; Z79.84 Long term (current) use of oral hypoglycemic drugs; Z79.899 Other long term (current) drug therapy; Z88.5 Allergy status to narcotic agent; Z98.84 Bariatric surgery status
CPT/HCPCS: 74177; 80048; 80053; 82962 ×2; 83605; 83615; 83690; 84550; 85025 ×2; 87040; 88365; 93005; 96372; 96376 ×2; G0378 ×3; U0002; 36415; 36416; 81003; 81015; 85060; 88184; 88237; 88264; 88280; 96365; 96375; J1650; J1815; J2270; J2405; J2543; J7050; Q9967

== ENCOUNTER 2021-10-14 15:15 | Outpatient (CLI) | payer MEDICARE ==
[2021-10-14 17:01] LABS: ALT (SGPT) 37 U/L (8-55); AST (SGOT) 28 U/L (5-34); Albumin 4.3 g/dL (3.4-4.8); Alkaline Phosphatase 121 U/L (40-110); Anion Gap 17 mmol/L (10-20); BUN (Urea Nitrogen) 25 mg/dL (8.4-25.7); Bilirubin, Direct 0.2 mg/dL (0.1-0.3); Bilirubin, Total 0.4 mg/dL (0.2-1.2); Calc. Creatinine Clearance 0 mL/min (70-130); Calcium 8.9 mg/dL (7.8-10.44); Carbon Dioxide 23 mmol/L (23-31); Chloride 100 mmol/L (98-107); Globulin 2.3 g/dL (2.4-3.5); Glucose 322 mg/dL (80-115); Potassium 3.9 mmol/L (3.5-5.1); Protein, Total 6.6 g/dL (5.8-8.1); Sodium 136 mmol/L (136-145)
[2021-10-14 17:02] LABS: Hemoglobin 12.4 g/dL (13.5-17.5); Mean Corpuscular HGB CONC 33.1 g/dL (32.0-36.0); Mean Corpuscular Volume 90.6 fl (81.2-95.1); Mean Platelet Volume 9.3 fl (7.4-10.4); Platelet Count 123 10x3/uL (150-450); RBC Distribution Width 13.2 % (11.5-14.5); Red Blood Cell (RBC) Count 4.14 10x6/uL (4.32-5.72); White Blood Cell (WBC) Count 80.4 10x3/uL (3.5-10.5)
[2021-10-14 17:04] LABS: Lymphocytes 93 % (21-51); Monocytes 2 % (0-10); Platelet Morphology Comment Appears Decreased
[2021-10-14 17:05] LABS: Reflex for Review?? YES
[2021-10-14 17:07] LABS: MDiff Complete? YES; Neutrophil 5 % (42-75)
[2021-10-15 00:14] LABS: SARS-CoV-2 PCR by NAA Not Detected (NotDetected)
== END 2021-10-14 15:16 | disposition home or self-care (01) ==
LOC: LABBT 15:15
PROVIDERS: ATTEND Surgery
DX: Z01.818 Encounter for other preprocedural examination (principal); K80.20 Calculus of gallbladder without cholecystitis without obstruction; Z20.822 Contact with and (suspected) exposure to COVID-19
CPT/HCPCS: 80053; 80076; 85025; 93005; U0003; U0005; 85060; 93010

== ENCOUNTER 2022-03-10 08:06 | Outpatient (CLI) | payer MEDICARE ==
[2022-03-10] MEDS ORDERED: Iopamidol 370 76% 100 ML VIAL ONE (15:53)
== END 2022-03-10 08:07 | disposition home or self-care (01) ==
LOC: CT 08:06
PROVIDERS: ATTEND Internal Medicine Medical Oncology
DX: C85.90 Non-Hodgkin lymphoma, unspecified, unspecified site (principal); D64.9 Anemia, unspecified; D72.820 Lymphocytosis (symptomatic); R16.1 Splenomegaly, not elsewhere classified
CPT/HCPCS: 71260; 74177; 82565; Q9967

== ENCOUNTER 2022-09-05 08:41 | Outpatient (CLI) | payer MEDICARE | END 2022-09-05 08:42 | disposition home or self-care (01) | LOC: ULT 08:41 | PROVIDERS: ATTEND Internal Medicine Medical Oncology | DX: C88.4 Extranodal marginal zone B-cell lymphoma of mucosa-associated lymphoid tissue [MALT-lymphoma] (principal); R16.1 Splenomegaly, not elsewhere classified | CPT/HCPCS: 76700 ==